=== PATIENT | female | born 2000 | race Caucasian/White ===

== ENCOUNTER → 2023-03-24 | Outpatient (CLI) | payer OTHER ==
[2023-03-25 03:06] LABS: RUBEOLA (MEASLES) IGG 40.1 AU/mL (Immune >16.4)
== END | disposition home or self-care (01) ==
LOC: LABMN 11:39
PROVIDERS: ATTEND Internal Medicine
DX: Z02.1 Encounter for pre-employment examination (principal)
CPT/HCPCS: 86706; 86735; 86762; 86765; 86787